=== PATIENT | male | born 1955 | race Caucasian/White ===

== ENCOUNTER → 2016-09-19 | Outpatient (CLI) | payer BC, OTHER ==
[~2016-09-19] MED LIST: ATOR-22 PO; CALC600T37 PO; CELE100C PO; CHOL2000 PO; CTP2 PO; DICL-201 PO; HYDR-5688 PO; LABE100T16 PO; LABE300T PO; LISI-461 PO; LISI40TA PO; LSN40 PO; MAGN400T6 PO; PANT40TA PO; PRT/40 PO; RLF750 PO; SIMV10TA2 PO; THIA100T11 PO; VITAMIN D3 PO
[2016-09-19 16:52] LABS: BASO % 0.3 %; BASO ABS # 0.03 K/uL (0-0.2); COMPLETE YES; EOS % 0.6 %; HEMATOCRIT 37.5 % (42-52); IG% 0.5 %; LYMPH % 19.6 %; LYMPH ABS # 2.01 K/uL (1.2-3.4); MEAN CELL VOLUME 85.6 fL (80-100); MEAN CORPUSCULAR HEMOGLOBIN 28.8 pg (25-34); MEAN CORPUSCULAR HGB CONC 33.6 g/dl (32-36); MEAN PLATELET VOLUME 9.6 fL (7.4-10.4); MONO % 14.6 %; NEUT % 64.4 %; PLATELET COUNT 320 K/uL (130-400); RED BLOOD COUNT 4.38 M/uL (4.7-6.1); WHITE BLOOD COUNT 10.26 K/uL (4.8-10.8)
[2016-09-19 17:04] LABS: ALT/SGPT 33 U/L (12-78); AST/SGOT 25 U/L (15-37); BLOOD UREA NITROGEN 20 mg/dl (7-18); CALCIUM 7.1 mg/dl (8.5-10.1); CARBON DIOXIDE 24 mmol/L (21-32); CHLORIDE 106 mmol/L (98-107); CREATININE 0.88 mg/dl (0.60-1.40); GLUCOSE 100 mg/dl (70-99); SODIUM 139 mmol/L (136-145)
[2016-09-19 17:06] LABS: ALB/GLOB RATIO 0.7 (0.9-2); ALKALINE PHOSPHATASE 92 U/L (45-117)
== END | disposition home or self-care (01) ==
LOC: C.LABPBG 12:51
PROVIDERS: ATTEND Family Medicine
DX: Z00.00 Encounter for general adult medical examination without abnormal findings (principal)

== ENCOUNTER → 2016-09-23 | Outpatient (CLI) | payer BC, OTHER ==
--- NOTE | 2016-09-23 14:59 | DIAGNOSTIC IMAGING REPORT ---
CHEST 2 VIEWS ROUTINE CLINICAL HISTORY: Unintentional weight loss. Fatigue. COMPARISON STUDY: 08/10/2014 FINDINGS: The cardiac and mediastinal contours remain stable. There is aortic tortuosity. There is no failure. There is no focal pulmonary consolidation. There are no pleural effusions. There is an old right clavicular fracture.[ IMPRESSION: No active disease in the chest. Electronically signed by: Bon Richmond M.D. 09/23/2016 2:57 PM Dictated Date/Time: 09/23/2016 2:57 PM
[2016-09-23 17:46] LABS: BLOOD UREA NITROGEN 15 mg/dl (7-18); BUN/CREATININE RATIO 17.1 (10-20); CALCIUM 6.7 mg/dl (8.5-10.1); CARBON DIOXIDE 26 mmol/L (21-32); CHLORIDE 107 mmol/L (98-107); CHOLESTEROL 128 mg/dl (0-200); CHOLESTEROL/HDL RATIO 3.1; FERRITIN 445.5 ng/ml (8.0-388.0); GLUCOSE 101 mg/dl (70-99); HDL CHOLESTEROL 41 mg/dl; LDL CHOLESTEROL CALCULATED 70 mg/dl; MAGNESIUM 0.4 mg/dl (1.8-2.4); PHOSPHORUS 3.2 mg/dl (2.5-4.9); POTASSIUM 3.7 mmol/L (3.5-5.1); SODIUM 143 mmol/L (136-145); TOTAL IRON BINDING CAPACITY 190 mcg/dl (250-450); TRIGLYCERIDES 84 mg/dl (0-150); VERY LOW DENSITY LIPOPROT CALC 17 mg/dl
[2016-09-25 14:50] LABS: IONIZED CALCIUM** TC 19950E 3.9 MG/DL (4.8-5.6)
== END | disposition home or self-care (01) ==
LOC: C.RADBC 14:06
PROVIDERS: ATTEND Family Medicine
DX: E78.5 Hyperlipidemia, unspecified (principal); E83.51 Hypocalcemia; D64.9 Anemia, unspecified; R10.9 Unspecified abdominal pain; R63.4 Abnormal weight loss; F17.200 Nicotine dependence, unspecified, uncomplicated; Z11.59 Encounter for screening for other viral diseases

== ENCOUNTER → 2016-09-29 | Outpatient (CLI) | payer BC, OTHER ==
[2016-09-29 12:21] LABS: BASO % 0.9 %; BASO ABS # 0.05 K/uL (0-0.2); COMPLETE YES; EOS % 4.3 %; HEMATOCRIT 36.1 % (42-52); IG% 0.5 %; LYMPH % 23.5 %; LYMPH ABS # 1.32 K/uL (1.2-3.4); MEAN CELL VOLUME 88.7 fL (80-100); MEAN CORPUSCULAR HEMOGLOBIN 29.7 pg (25-34); MEAN CORPUSCULAR HGB CONC 33.5 g/dl (32-36); MEAN PLATELET VOLUME 9.5 fL (7.4-10.4); MONO % 9.1 %; NEUT % 61.7 %; PLATELET COUNT 298 K/uL (130-400); RED BLOOD COUNT 4.07 M/uL (4.7-6.1); WHITE BLOOD COUNT 5.61 K/uL (4.8-10.8)
[2016-09-29 13:03] LABS: BLOOD UREA NITROGEN 13 mg/dl (7-18); CALCIUM 8.4 mg/dl (8.5-10.1); CARBON DIOXIDE 30 mmol/L (21-32); CHLORIDE 105 mmol/L (98-107); CREATININE 0.74 mg/dl (0.60-1.40); GLUCOSE 109 mg/dl (70-99); MAGNESIUM 1.8 mg/dl (1.8-2.4); POTASSIUM 4.8 mmol/L (3.5-5.1); SODIUM 138 mmol/L (136-145)
== END | disposition home or self-care (01) ==
LOC: C.LABPBG 09:38
PROVIDERS: ATTEND Family Medicine
DX: E83.51 Hypocalcemia (principal); E83.42 Hypomagnesemia; D64.9 Anemia, unspecified

== ENCOUNTER → 2016-10-13 | Outpatient (CLI) | payer BC, OTHER ==
[~2016-10-13] MED LIST changes: +OPTIRAY 320 IV PRN; +PANT40TA2 PO; -PRT/40 PO
--- NOTE | 2016-10-14 07:25 | DIAGNOSTIC IMAGING REPORT ---
ABDOMEN AND PELVIS CT WITH IV AND ORAL CONTRAST CT DOSE: 892.98 mGy.cm HISTORY: Weight loss R63.4 Unintentional weight lossR53.83 [id number] TECHNIQUE: Multiaxial CT images of the abdomen and pelvis were performed following the use of intravenous and oral contrast. COMPARISON STUDY: None. FINDINGS: Lung bases are clear. Liver spleen unremarkable. 1.8 x 1.2 cm hypodensity juncture pancreatic body and tail. Minimal hyperplastic changes adrenal glands. Kidneys negative for hydronephrosis. 5 mm hyperdense cyst posterior aspect interpolar region right kidney. [Moderate atherosclerotic change abdominal aorta with no evidence for aneurysm] chronic sigmoid diverticulosis. Moderate wall thickening. No evidence for acute diverticulitis. Nonobstructive bowel pattern. IMPRESSION: 1. Hypodense parenchymal nodule of the pancreas measuring 1.8 x 1.2 cm. 2. Endoscopic ultrasonography is suggested as follow-up. 3. Chronic sigmoid diverticulosis. Electronically signed by: Gurdeep Arcos M.D. 10/13/2016 4:34 PM Dictated Date/Time: 10/13/2016 4:29 PM
== END | disposition home or self-care (01) ==
LOC: C.CTS 12:59
PROVIDERS: ATTEND Family Medicine
DX: R53.83 Other fatigue (principal); R63.4 Abnormal weight loss; K86.89 Other specified diseases of pancreas; K57.30 Diverticulosis of large intestine without perforation or abscess without bleeding

== ENCOUNTER → 2016-10-16 | Outpatient (CLI) | payer BC, OTHER ==
[~2016-10-16] MED LIST changes: -OPTIRAY 320 IV PRN
[2016-10-16 13:20] LABS: HEMATOCRIT 38.9 % (42-52)
[2016-10-16 14:43] LABS: ALKALINE PHOSPHATASE 108 U/L (45-117); AST/SGOT 23 U/L (15-37); BLOOD UREA NITROGEN 18 mg/dl (7-18); BUN/CREATININE RATIO 16.5 (10-20); CALCIUM 9.3 mg/dl (8.5-10.1); CARBON DIOXIDE 21 mmol/L (21-32); CHLORIDE 102 mmol/L (98-107); GLUCOSE 118 mg/dl (70-99); MAGNESIUM 2.1 mg/dl (1.8-2.4); POTASSIUM 5.1 mmol/L (3.5-5.1); SODIUM 134 mmol/L (136-145)
[2016-10-16 14:44] LABS: ALB/GLOB RATIO 0.9 (0.9-2)
[2016-10-16 14:53] LABS: ALT/SGPT 29 U/L (12-78)
[2016-10-17 15:58] LABS: ALBUMIN % 60.21 %; ALPHA-2-GLOBULIN % 12.34 %; CREATININE UR 174 MG/DL (20-370); GAMMA GLOBULIN % 9.66 %
[2016-10-17 16:24] LABS: ALBUMIN 3.3 G/DL (3.8-4.8); GAMMA GLOBULIN 1.1 G/DL (0.8-1.7); TOTAL PROTEIN 6.6 G/DL (6.2-8.3)
== END | disposition home or self-care (01) ==
LOC: C.LABPBG 10:31
PROVIDERS: ATTEND Family Medicine
DX: D64.9 Anemia, unspecified (principal); E83.51 Hypocalcemia; K86.9 Disease of pancreas, unspecified

== ENCOUNTER 2016-12-12 09:47 | Day surgery (SDC) | payer BC, OTHER ==
[2016-12-09 12:34] VITALS: BMI 27.0
[~2016-12-12] VITALS: Ht 171.5 cm; Wt 87.3 kg
[~2016-12-12 09:47] MED LIST changes: -CELE100C PO; -CTP2 PO; -DICL-201 PO; -HYDR-5688 PO; -LABE100T16 PO; +LACTATED RINGER'S 1000ML 1,000 ML IV SCH; -LISI40TA PO; -LSN40 PO; -PANT40TA PO; -PANT40TA2 PO; -SIMV10TA2 PO; -VITAMIN D3 PO
[2016-12-12 10:11] VITALS: BP 104/84; PULSE 94; TEMP 37; O2SAT 97; Ht 171.5 cm; Wt 87.3 kg
[2016-12-12 10:41] LABS: BASO % 0.7 %; BASO ABS # 0.05 K/uL (0-0.2); EOS % 2.1 %; HEMATOCRIT 42.7 % (42-52); IG% 0.3 %; LYMPH ABS # 1.67 K/uL (1.2-3.4); MEAN CELL VOLUME 91.8 fL (80-100); MEAN PLATELET VOLUME 8.5 fL (7.4-10.4); MONO % 8.1 %; NEUT % 63.8 %; PLATELET COUNT 247 K/uL (130-400); RED BLOOD COUNT 4.65 M/uL (4.7-6.1); WHITE BLOOD COUNT 6.69 K/uL (4.8-10.8)
[2016-12-12 10:43] LABS: COMPLETE YES; MEAN CORPUSCULAR HGB CONC 33.7 g/dl (32-36)
[2016-12-12] MEDS ORDERED: LIDOCAINE HCL 2% 2 ML VIAL (20MG/ML) ONE (10:46)
[2016-12-12] MEDS ORDERED: MIDAZOLAM HCL 1 MG/ML 2ML VIAL ONE (10:46)
[2016-12-12] MEDS ORDERED: PROPOFOL IV EMULSION 10 MG/ML 20 ML VIAL IV ONE (10:46)
[2016-12-12] MEDS ORDERED: ROCURONIUM BROMIDE 10 MG/ML 5 ML VIAL ONE (10:46)
[2016-12-12] MEDS ORDERED: FENTANYL CITRATE INJ 50 MCG/1 ML 2 ML VIAL ONE (10:47)
[2016-12-12] MEDS ORDERED: SODIUM CHLORIDE 0.9% 500ML 500 ML IV ONE (11:07)
--- NOTE | 2016-12-12 11:11 | Endo History and Physical ---
History & Physical Date of Service: Dec 12, 2016. Chief Complaint: wt loss 25# abnormal CT scan Referring Physician: History of Present Illness wt loss; abnormal CT scan Past Surgical History Hx Cardiac Surgery: No Hx Abdominal Surgery: No Hx Post-Op Nausea and Vomiting: No Hx Cancer Surgery: No Hx Thoracic Surgery: No Hx Orthopedic: Yes (LUMBAR EPIDURAL INJECTION) Hx Urinary Tract Surgery: No Social History Smoking Status: Current Every Day Smoker Hx Substance Use: Yes (MARIJUANA DAILY) Hx Alcohol Use: Yes (12 BEERS A WEEK) Allergies Coded Allergies: No Known Allergies (Unverified , 12/12/16) Current Medications Reported Home Medications Medications Dose Route/Sig Max Daily Dose Days Date Category Calcium 600 Mg Tab 600 Mg PO QAM 12/09/16 Reported Vitamin B-1 (Thiamine HCl) 100 Mg Tab 100 Mg PO QAM 12/09/16 Reported Vitamin D3 (Cholecalciferol) 2,000 Unit Cap 1 Cap PO QAM 12/09/16 Reported Lipitor (Atorvastatin Calcium) 20 Mg Tab 20 Mg PO HS 12/09/16 Reported Zestril (Lisinopril) 10 Mg Tab 5 Mg PO HS 12/09/16 Reported Nabumetone 750 Mg Tab 1 Tab PO BID 12/09/16 Reported Labetalol Hcl 300 Mg Tab 300 Mg PO BID 08/21/14 Reported Vital Signs Weight (Kilograms): 87.27 Height (Feet): 5 Height (Inches): 7.5 Date Time Temp Pulse Resp B/P (MAP) Pulse Ox O2 Delivery O2 Flow Rate FiO2 12/12/16 10:11 37 94 20 104/84 (91) 97 Room Air Physical Exam AAOx3 Nls1s2 lungs CTA Abd soft NT/ND + BS - CCE Assessment and Plan EUS with possible FNA
[2016-12-12] MEDS ORDERED: FENTANYL CITRATE INJ 50 MCG/1 ML 2 ML VIAL IV PRN (11:15)
[2016-12-12] MEDS ORDERED: ATROPINE SULFATE 0.1 MG/ML 5ML SYR IV PRN (11:15)
[2016-12-12] MEDS ORDERED: ONDANSETRON INJ 2 MG/ML 2 ML VIAL IV PRN (11:15)
[2016-12-12] MEDS ORDERED: CIPROFLOXACIN 400MG / 200ML D5W ONE (11:52)
[2016-12-12] MEDS ORDERED: EpHEDrine SULFATE INJ 50 MG/ML AMP ONE ×2 (13:07)
--- NOTE | 2016-12-12 13:11 | Discharge Instructions ---
Endoscopy Patient Instructions Date / Procedure(s) Performed Dec 12, 2016. EGD, Other Allergy Information Coded Allergies: No Known Allergies (Unverified , 12/12/16) Discharge Date / Findings Dec 12, 2016. EGD with prominent fold at cardia- biopsied EUS panc cyst - drained completly- samples sent for chem analysis and cytology Medication Instructions Restart Stopped Medication(s): Reported Home Medications Medications Dose Route/Sig Max Daily Dose Days Date Category Calcium 600 Mg Tab 600 Mg PO QAM 12/09/16 Reported Vitamin B-1 (Thiamine HCl) 100 Mg Tab 100 Mg PO QAM 12/09/16 Reported Vitamin D3 (Cholecalciferol) 2,000 Unit Cap 1 Cap PO QAM 12/09/16 Reported Lipitor (Atorvastatin Calcium) 20 Mg Tab 20 Mg PO HS 12/09/16 Reported Zestril (Lisinopril) 10 Mg Tab 5 Mg PO HS 12/09/16 Reported Nabumetone 750 Mg Tab 1 Tab PO BID 12/09/16 Reported Labetalol Hcl 300 Mg Tab 300 Mg PO BID 08/21/14 Reported Cipro 500mg twice daily for 5 days- finish meds Reported Home Medications Medications Dose Route/Sig Max Daily Dose Days Date Category Calcium 600 Mg Tab 600 Mg PO QAM 12/09/16 Reported Vitamin B-1 (Thiamine HCl) 100 Mg Tab 100 Mg PO QAM 12/09/16 Reported Vitamin D3 (Cholecalciferol) 2,000 Unit Cap 1 Cap PO QAM 12/09/16 Reported Lipitor (Atorvastatin Calcium) 20 Mg Tab 20 Mg PO HS 12/09/16 Reported Zestril (Lisinopril) 10 Mg Tab 5 Mg PO HS 12/09/16 Reported Nabumetone 750 Mg Tab 1 Tab PO BID 12/09/16 Reported Labetalol Hcl 300 Mg Tab 300 Mg PO BID 08/21/14 Reported Cipro 500mg twice daily for 5 days- finish meds Provider Instructions Activity Restrictions - No exercising or heavy lifting for 24 hours. - Do not drink alcohol the day of the procedure. - Do not drive a car or operate machinery until the day after the procedure. - Do not make any important decisions or sign important papers in 24 hours after the procedure. Following Day: - Return to full activity which may include returning to work/school. Diet Start your diet with liquids and light foods (jello, soup, juice, toast). Then eat your usual diet if not nauseated. Treatment For Common After Affects For mild abdominal pain, bloating, or excessive gas: - Rest - Eat lightly - Lie on right side Follow-Up Information Follow-up with as scheduled Anesthesia Information What You Should Know You have had a procedure that required some medicine to reduce anxiety and discomfort. This treatment is called moderate sedation. After receiving the treatment, you may be sleepy, but you will be able to breathe on your own. The effects of the treatment may last for several hours. Follow these instructions along with Activity/Diet recommendations noted above: * Do NOT do anything where dizziness or clumsiness would be dangerous. * Rest quietly at home today, then you can be up and about tomorrow. * Have a responsible person stay with you the rest of today. * You may have had an I.V. today. If so, you may take the dressing off later today. Recommendations Call your doctor if: * Trouble breathing * Continuous vomiting for more than 24 hours * Temperature above 101 degrees * Severe abdominal pain or bloating * Pain not relieved by pain medicine ordered * There is increased drainage or redness from any incision * A large amount of rectal bleeding greater than 2-3 tablespoons. (If you had a polyp/s removed or have hemorrhoids, a small amount of blood - from the rectum is to be expected.) * You have any unanswered questions or concerns. IN THE EVENT OF A SERIOUS EMERGENCY, GO TO THE NEAREST EMERGENCY ROOM Your discharge instructions were prepared by provider Sachin Guzman. Patient Instructions Signature Page Cole Falcon Patient (or Guardian) Signature/Date: I have read and understand the instructions given to me by my caregivers. Caregiver/RN/Doctor Signature/Date: The above-named patient and/or guardian has received patient instructions on this date. + Original Patient Signature Page (only) stays with chart. Please make copy for patient.
[2016-12-12 13:40] VITALS: BP 98/65; PULSE 51; TEMP 36.6; O2SAT 95
--- NOTE | 2016-12-12 13:50 | GI REPORT ---
Procedure Date: 12/12/2016 11:35 AM Procedure: Upper EUS Indications: Pancreatic cyst on CT scan, Weight loss, Chronic ETOH use; 25 # wt loss; no prior hx of pancreatitis Medicines: General Anesthesia Complications: No immediate complications. Estimated blood loss: Minimal. Estimated Blood Loss: Estimated blood loss was minimal. Procedure: Pre-Anesthesia Assessment: - Prior to the procedure, a History and Physical was performed, and patient medications and allergies were reviewed. The patient's tolerance of previous anesthesia was also reviewed. The risks and benefits of the procedure and the sedation options and risks were discussed with the patient. All questions were answered, and informed consent was obtained. Prior Anticoagulants: The patient has taken no previous anticoagulant or antiplatelet agents. ASA Grade Assessment: III - A patient with severe systemic disease. After reviewing the risks and benefits, the patient was deemed in satisfactory condition to undergo the procedure. After obtaining informed consent, the endoscope was passed under direct vision. Throughout the procedure, the patient's blood pressure, pulse, and oxygen saturations were monitored continuously. The Endosonoscope was introduced through the mouth, and advanced to the second part of duodenum. The upper EUS was accomplished without difficulty. The patient tolerated the procedure well. The scope was introduced through the mouth, and advanced to the second part of duodenum. Findings: Endoscopic Finding : The examined esophagus was normal. The Z-line was irregular and was found 40 cm from the incisors. Localized mild mucosal changes characterized by congestion, erythema, granularity and inflammation were found in the cardia. Biopsies were taken with a cold forceps for histology. Verification of patient identification for the specimen was done by the physician and ecg technician using the patient's name and medical record number. The exam of the stomach was otherwise normal. The examined duodenum was normal. Endosonographic Finding : The esophagus, stomach and duodenum and adjacent structures were visualized endosonographically. There was no sign of significant endosonographic abnormality in the esophagus. No pathologic lymphadenopathy was identified. Endosonographic images of the stomach were unremarkable. No pathologic lymphadenopathy and no masses were identified. There was no sign of significant endosonographic abnormality in the examined duodenum. No pathologic lymphadenopathy was identified. There was no sign of significant endosonographic abnormality in the ampulla. A small amount of hyperechoic material consistent with sludge was visualized endosonographically in the gallbladder body. There was no sign of significant endosonographic abnormality in the common bile duct. The maximum diameter of the duct was 4 mm. No stones, ducts of normal caliber and ducts with regular contour were identified. There was patchy abnormal echotexture in the left lobe of the liver. This was characterized by a heterogenous appearance. An anechoic lesion suggestive of a cyst was identified in the pancreatic body. It is not in obvious communication with the pancreatic duct. The lesion measured 16 mm by 20 mm in maximal cross-sectional diameter. There was a single compartment without septae. The outer wall of the lesion was not seen. There was no associated mass. There was internal debris within the fluid-filled cavity. Therapeutic needle aspiration for fluid was performed. Color Doppler imaging was utilized prior to needle puncture to confirm a lack of significant vascular structures within the needle path. One pass was made with the 22 gauge needle using a transgastric approach. No stylet was used. The amount of fluid collected was 2 mL. The fluid was clear. Sample(s) were sent for amylase concentration and CEA. Verification of patient identification for the specimen was done by the physician and ecg technician using the patient's name and medical record number. Pancreatic parenchymal abnormalities were noted in the entire pancreas. These consisted of hyperechoic foci. Endosonographic imaging in the pancreatic body showed no pancreatic duct changes. Endosonographic imaging in the main pancreatic duct showed no stones. One benign-appearing lymph node was visualized in the aortopulmonary region (level 5) with the ultrasound probe located 32 cm from the incisors. It measured 12 mm by 7 mm in maximal cross-sectional diameter. The node was triangular, hypoechoic and heterogenous and had well defined margins. Impression: - Normal esophagus. - Z-line irregular, 40 cm from the incisors. - Congested, erythematous, granular and inflamed mucosa in the cardia. Biopsied. - Normal examined duodenum. - There was no sign of significant pathology in the esophagus. - Endosonographic images of the stomach were unremarkable. - There was no sign of significant pathology in the examined duodenum. - There was no sign of significant pathology in the ampulla. - Hyperechoic material consistent with sludge was visualized endosonographically in the gallbladder body. - There was no sign of significant pathology in the common bile duct. - There was patchy abnormal echotexture in the left lobe of the liver. This was characterized by a heterogenous appearance. - A cystic lesion was seen in the pancreatic body. Fine needle aspiration for fluid performed. - Pancreatic parenchymal abnormalities consisting of hyperechoic foci were noted in the entire pancreas. - One benign lymph node was visualized in the aortopulmonary region (level 5). Recommendation: - Discharge patient to home (ambulatory). - Patient has a contact number available for emergencies. The signs and symptoms of potential delayed complications were discussed with the patient. Return to normal activities tomorrow. Written discharge instructions were provided to the patient. - Advance diet as tolerated. - Cipro (ciprofloxacin) 500 mg PO BID for 5 days. - Return to GI clinic with Dr Gregory as previously scheduled. - - await cytology results and await path results and fluid analysis. - 1- no evidence for esophageal varices 2-possible proximal portal gastropathy 3) distal half of stomach appears normal 4-coarse texture to liver 5-pancreas with some features of chronic pancreatitis by texture- duct is normal sized MD Sachin Weiss MD 12/12/2016 1:49:44 PM This report has been signed electronically. Note Initiated On: 12/12/2016 11:35 AM I attest to the content of the Intraoperative Record and orders documented therein, exceptions below
[2016-12-12 14:10] VITALS: BP 102/66; PULSE 73; O2SAT 96
--- NOTE | 2016-12-12 14:17 | Anesthesiology Progress Note ---
Anesthesia Post Op Note Date & Time Dec 12, 2016 at 14:17 Vital Signs Pain Intensity: 0 Vital Signs Past 12 Hours Date Time Temp Pulse Resp B/P (MAP) Pulse Ox O2 Delivery O2 Flow Rate FiO2 12/12/16 13:40 36.6 51 18 98/65 95 Room Air 12/12/16 13:30 36.0 50 18 97/63 (69) 95 Room Air 12/12/16 13:20 43 12 105/69 95 Room Air 12/12/16 13:10 65 18 111/73 95 Room Air 12/12/16 13:00 36.2 67 16 118/72 97 Mask 8 12/12/16 10:11 37 94 20 104/84 (91) 97 Room Air Notes Mental Status: alert / awake / arousable, participated in evaluation Pt Amnestic to Procedure: Yes Nausea / Vomiting: adequately controlled Pain: adequately controlled Airway Patency, RR, SpO2: stable & adequate BP & HR: stable & adequate Hydration State: stable & adequate Anesthetic Complications: no major complications apparent
[2016-12-12 14:40] VITALS: BP 100/65; PULSE 74; TEMP 36.4; O2SAT 94
== END 2016-12-12 15:14 | disposition home or self-care (01) ==
LOC: C.ACU 09:47
PROVIDERS: ATTEND Internal Medicine Gastroenterology
DX: R63.4 Abnormal weight loss (principal); F17.200 Nicotine dependence, unspecified, uncomplicated

== ENCOUNTER → 2017-06-09 | Outpatient (CLI) | payer OTHER ==
[~2017-06-09] MED LIST changes: -LACTATED RINGER'S 1000ML 1,000 ML IV SCH; -MAGN400T6 PO
[2017-06-09 13:28] LABS: ALT/SGPT 34 U/L (12-78); AST/SGOT 23 U/L (15-37); BLOOD UREA NITROGEN 16 mg/dl (7-18); BUN/CREATININE RATIO 17.7 (10-20); CALCIUM 9.6 mg/dl (8.5-10.1); CARBON DIOXIDE 28 mmol/L (21-32); CHLORIDE 104 mmol/L (98-107); CHOLESTEROL 195 mg/dl (0-200); CREATININE 0.91 mg/dl (0.60-1.40); GLUCOSE 86 mg/dl (70-99); MAGNESIUM 2.1 mg/dl (1.8-2.4); POTASSIUM 4.1 mmol/L (3.5-5.1); SODIUM 137 mmol/L (136-145)
[2017-06-09 13:41] LABS: ALKALINE PHOSPHATASE 73 U/L (45-117); CHOLESTEROL/HDL RATIO 2.3; HDL CHOLESTEROL 85 mg/dl; LDL CHOLESTEROL CALCULATED 98 mg/dl; TRIGLYCERIDES 60 mg/dl (0-150); VERY LOW DENSITY LIPOPROT CALC 12 mg/dl
[2017-06-10 15:29] LABS: ALBUMIN 3.7 G/DL (3.8-4.8); GAMMA GLOBULIN 0.7 G/DL (0.8-1.7); TOTAL PROTEIN 6.2 G/DL (6.2-8.3)
== END | disposition home or self-care (01) ==
LOC: C.LABPBG 09:28
PROVIDERS: ATTEND Family Medicine
DX: R80.9 Proteinuria, unspecified (principal); I10 Essential (primary) hypertension; E78.5 Hyperlipidemia, unspecified; E83.42 Hypomagnesemia